=== PATIENT | female | born 1990 | race Caucasian/White ===

== ENCOUNTER 2018-06-05 12:47 | Emergency (ER) | payer MEDICARE, MEDICAID ==
[~2018-06-05] VITALS: Ht 177.8 cm; Wt 81.8 kg
[~2018-06-05 12:47] MED LIST: ALBU18HF2 INH; SERT50TA PO
[2018-06-05] MEDS ORDERED: predniSONE 20 mg tablet PO ONE (14:15)
[2018-06-05] MEDS ORDERED: epiNEPHrine 1 mg/ml inj SQ ONE (14:15)
[2018-06-05] MEDS ORDERED: famotidine 10mg tablet PO SCH (14:15)
[2018-06-05] MEDS ORDERED: diphenhydrAMINE 50 mg/ml inj IM ONE (14:15)
[2018-06-05] MEDS ORDERED: DIPH25CA83 PO (14:21)
[2018-06-05] MEDS ORDERED: FAMO-128 PO (14:21)
[2018-06-05] MEDS ORDERED: PRED10TA PO (14:21)
[2018-06-05 15:28] VITALS: BP 106/56
== END 2018-06-05 15:50 | disposition home or self-care (01) ==
LOC: ER 12:48
DX: L50.8 Other urticaria (principal); G89.29 Other chronic pain; F17.200 Nicotine dependence, unspecified, uncomplicated; J45.909 Unspecified asthma, uncomplicated; Z56.0 Unemployment, unspecified; Z98.890 Other specified postprocedural states; Z79.899 Other long term (current) drug therapy
CPT/HCPCS: 96372; 99284; J0171; J1200; J7512

== ENCOUNTER 2018-07-20 13:50 | Emergency (ER) | payer MEDICARE, MEDICAID ==
[~2018-07-20] VITALS: Ht 175.3 cm; Wt 135.0 kg
[~2018-07-20 13:50] MED LIST changes: +DIPH25CA83 PO; +FAMO-128 PO; +PRED10TA PO
[2018-07-20 15:07] LABS: BASOPHILS # (AUTO) 0.1 X10'3 (0-0.2); BASOPHILS % (AUTO) 0.7 % (0-1); EOSINOPHILS # (AUTO) 0.1 X10'3 (0-0.9); EOSINOPHILS % (AUTO) 0.4 % (0-6); HEMATOCRIT 40.7 % (35.0-45.0); HEMOGLOBIN 13.9 g/dl (12.0-16.0); LYMPHOCYTES % (AUTO) 14.6 % (21-51); MEAN CORPUSCULAR HEMOGLOBIN 29.4 PG (27.0-31.0); MEAN CORPUSCULAR HGB CONC 34.3 % (33.0-36.5); MEAN CORPUSCULAR VOLUME 85.8 FL (78-98); MEAN PLATELET VOLUME 8.1 FL (7.4-10.4); MONOCYTES # (AUTO) 0.6 X10'3 (0-0.9); MONOCYTES % (AUTO) 4.6 % (2-12); NEUTROPHILS # (AUTO) 10.9 X10'3 (1.8-7.7); NEUTROPHILS % (AUTO) 79.7 % (42-75); PLATELET COUNT 399 X10'3 (140-440); RED BLOOD COUNT 4.74 X10'6 (4.20-5.60); RED CELL DISTRIBUTION WIDTH 13.4 % (11.5-14.5); WHITE BLOOD COUNT 13.7 X10'3 (4.5-11.0)
[2018-07-20 15:18] LABS: ALANINE AMINOTRANSFERASE 24 U/L (12-78); ALBUMIN 4.3 G/DL (3.4-5.0); ALBUMIN/GLOBULIN RATIO 1.2 (1.1-1.5); ALKALINE PHOSPHATASE 67 IU/L (46-116); ANION GAP 18 (8-16); ASPARTATE AMINO TRANSFERASE 20 U/L (10-37); BILIRUBIN,TOTAL 0.7 MG/DL (0.1-1.0); BLOOD UREA NITROGEN 14 MG/DL (7-18); BUN/CREATININE RATIO 15.6 (6.6-38.0); CALCIUM 9.7 MG/DL (8.5-10.1); CHLORIDE 104 MMOL/L (99-107); GLUCOSE 85 MG/DL (70-104); POTASSIUM 3.5 MMOL/L (3.5-5.1); SODIUM 143 MMOL/L (135-145); TOTAL CARBON DIOXIDE 21.5 MMOL/L (24-32); eGFR 76 ML/MIN
[2018-07-20] MEDS ORDERED: LORazepam 1 MG tablet PO ONE (15:20)
[2018-07-20 15:28] LABS: ETHANOL < 0.010 GM/DL (0.0-0.010)
[2018-07-20 15:32] LABS: ACETAMINOPHEN < 2.0 UG/ML (10-30)
[2018-07-20 16:37] LABS: URINE HCG NEGATIVE (NEG)
[2018-07-20 16:44] LABS: CLARITY,URINE SLIGHTLY CLOUDY (Clear); COLOR,URINE YELLOW (Yellow); GLUCOSE, URINE NEGATIVE (Neg); KETONES,URINE 15 mg/dl (Neg); LEUKOCYTE ESTERASE ,URINE SMALL (Neg); NITRITES, URINE NEGATIVE (Neg); OCCULT BLOOD,URINE NEGATIVE (Neg); PH,URINE 6.5 (4.8-8.0); PROTEIN,URINE NEGATIVE (Neg)
[2018-07-20 16:49] LABS: URINE AMPHETAMINE SCREEN POSITIVE (Neg); URINE BARBITUATE SCREEN NEGATIVE (Neg); URINE BENZODIAZEPINES SCREEN NEGATIVE (Neg); URINE CANNABINOID SCREEN NEGATIVE (Neg); URINE COCAINE SCREEN NEGATIVE (Neg); URINE METHADONE SCREEN NEGATIVE (Neg); URINE OPIATE SCREEN NEGATIVE (Neg); URINE PHENCYCLIDINE SCREEN NEGATIVE (Neg)
[2018-07-20 16:56] LABS: UA COLLECTION TYPE CLN CATCH MIDSTREAM
[2018-07-20 16:58] LABS: BACTERIA,URINE 2+ /HPF (Neg); RBC,URINE 0-2 /HPF (0-2); SQUAMOUS EPITHELIAL CELL,UR MODERATE /LPF (FEW)
[2018-07-20 16:59] LABS: HYALINE CASTS 0-3 /LPF (NEGATIVE); MUCUS STRANDS FEW /LPF (Neg)
[2018-07-20] MEDS ORDERED: ibuprofen 200mg tablet PO ONE (19:00)
[2018-07-21] MEDS ORDERED: sertraline 50mg tablet PO SCH (08:00)
[2018-07-21] MEDS ORDERED: ibuprofen 200mg tablet PO ONE (08:55)
[2018-07-21] MEDS ORDERED: LORazepam 1 MG tablet PO PRN (12:25)
[2018-07-21 17:55] VITALS: BP 120/57
[2018-07-22] MEDS ORDERED: sertraline 25mg tablet PO SCH (08:00)
== END 2018-07-21 20:35 ==
LOC: ER 13:51
DX: S70.11XA Contusion of right thigh, initial encounter (principal); S40.811A Abrasion of right upper arm, initial encounter; F32.9 Major depressive disorder, single episode, unspecified; R45.851 Suicidal ideations; J45.909 Unspecified asthma, uncomplicated; G89.29 Other chronic pain; F20.9 Schizophrenia, unspecified; Z56.0 Unemployment, unspecified; Z98.890 Other specified postprocedural states; Z79.899 Other long term (current) drug therapy; X78.9XXA Intentional self-harm by unspecified sharp object, initial encounter; Y93.89 Activity, other specified; Y92.89 Other specified places as the place of occurrence of the external cause; Y99.9 Unspecified external cause status
CPT/HCPCS: 36415; 71045; 80053; 80305; 80320; 80329; 81001; 81025; 84443; 85025; 99285

== ENCOUNTER 2018-10-09 12:39 | Emergency (ER) | payer MEDICARE, MEDICAID ==
[~2018-10-09] VITALS: Ht 175.3 cm; Wt 62.2 kg
[2018-10-09 12:45] VITALS: BP 107/71
[2018-10-09] MEDS ORDERED: LIDOcaine 40mg/ml topical solution MM ONE (13:15)
[2018-10-09] MEDS ORDERED: LIDOcaine 4% (40 mg/ml) topical solution 50ml MM ONE (13:30)
[2018-10-09] MEDS ORDERED: CLIN-96 PO (14:17)
[2018-10-09] MEDS ORDERED: ACET-3068 PO (14:17)
== END 2018-10-09 14:57 | disposition home or self-care (01) ==
LOC: ER 12:40
DX: N61.1 Abscess of the breast and nipple (principal); J45.909 Unspecified asthma, uncomplicated; G89.29 Other chronic pain; F17.200 Nicotine dependence, unspecified, uncomplicated; F12.90 Cannabis use, unspecified, uncomplicated; Z56.0 Unemployment, unspecified; Z98.890 Other specified postprocedural states; Z79.899 Other long term (current) drug therapy
CPT/HCPCS: 99283; J2001

== ENCOUNTER 2018-12-21 19:06 | Emergency (ER) | payer MEDICARE, MEDICAID ==
[~2018-12-21] VITALS: Ht 177.8 cm; Wt 54.5 kg
[~2018-12-21 19:06] MED LIST changes: +CLIN-96 PO
[2018-12-21 19:33] LABS: CLARITY,URINE SLIGHTLY CLOUDY (Clear); COLOR,URINE YELLOW (Yellow); GLUCOSE, URINE NEGATIVE (Neg); KETONES,URINE NEGATIVE (Neg); LEUKOCYTE ESTERASE ,URINE LARGE (Neg); NITRITES, URINE NEGATIVE (Neg); OCCULT BLOOD,URINE NEGATIVE (Neg); PH,URINE 6.5 (4.8-8.0); PROTEIN,URINE NEGATIVE (Neg); URINE HCG NEGATIVE (NEG)
[2018-12-21 19:34] LABS: UA COLLECTION TYPE CLN CATCH MIDSTREAM
[2018-12-21 19:46] LABS: BACTERIA,URINE FEW /HPF (Neg); MUCUS STRANDS NONE SEEN /LPF (Neg); SQUAMOUS EPITHELIAL CELL,UR MANY /LPF (FEW); TRICHOMONAS,URINE FEW /HPF (NEGATIVE)
[2018-12-21 20:12] LABS: URINE AMPHETAMINE SCREEN NEGATIVE (Neg); URINE BARBITUATE SCREEN NEGATIVE (Neg); URINE BENZODIAZEPINES SCREEN NEGATIVE (Neg); URINE CANNABINOID SCREEN NEGATIVE (Neg); URINE COCAINE SCREEN NEGATIVE (Neg); URINE METHADONE SCREEN NEGATIVE (Neg); URINE OPIATE SCREEN NEGATIVE (Neg); URINE PHENCYCLIDINE SCREEN NEGATIVE (Neg)
[2018-12-21] MEDS ORDERED: NITR100C6 PO (20:30)
[2018-12-21] MEDS ORDERED: acetaminophen 325mg tablet PO ONE (20:30)
[2018-12-21 20:41] VITALS: BP 132/69
== END 2018-12-21 20:43 | disposition home or self-care (01) ==
LOC: ER 19:07
DX: N39.0 Urinary tract infection, site not specified (principal); J45.909 Unspecified asthma, uncomplicated; G89.29 Other chronic pain; F12.90 Cannabis use, unspecified, uncomplicated; Z98.890 Other specified postprocedural states; Z56.0 Unemployment, unspecified; Z79.899 Other long term (current) drug therapy
CPT/HCPCS: 80305; 81001; 81025; 99283

== ENCOUNTER 2019-01-07 09:32 | Emergency (ER) | payer MEDICARE, MEDICAID ==
[~2019-01-07] VITALS: Ht 175.3 cm; Wt 62.1 kg
[~2019-01-07 09:32] MED LIST changes: +NITR100C6 PO
[2019-01-07 09:45] VITALS: BP 98/57
[2019-01-07 10:29] LABS: BASOPHILS # (AUTO) 0.1 X10'3 (0-0.2); BASOPHILS % (AUTO) 1.5 % (0-1); EOSINOPHILS # (AUTO) 0.2 X10'3 (0-0.9); EOSINOPHILS % (AUTO) 3.1 % (0-6); HEMATOCRIT 39.2 % (35.0-45.0); HEMOGLOBIN 13.4 g/dl (12.0-16.0); LYMPHOCYTES # (AUTO) 2.3 X10'3 (1.1-4.8); LYMPHOCYTES % (AUTO) 33.5 % (21-51); MEAN CORPUSCULAR HEMOGLOBIN 30.6 PG (27.0-31.0); MEAN CORPUSCULAR HGB CONC 34.2 g/dL (33.0-36.5); MEAN CORPUSCULAR VOLUME 89.7 FL (78-98); MEAN PLATELET VOLUME 7.4 FL (7.4-10.4); MONOCYTES # (AUTO) 0.4 X10'3 (0-0.9); MONOCYTES % (AUTO) 6.4 % (2-12); NEUTROPHILS # (AUTO) 3.9 X10'3 (1.8-7.7); NEUTROPHILS % (AUTO) 55.5 % (42-75); PLATELET COUNT 401 X10'3 (140-440); RED BLOOD COUNT 4.37 X10'6 (4.20-5.60); RED CELL DISTRIBUTION WIDTH 14.2 % (11.5-14.5)
[2019-01-07 10:52] LABS: ALANINE AMINOTRANSFERASE 25 U/L (12-78); ALBUMIN 3.8 G/DL (3.4-5.0); ALKALINE PHOSPHATASE 68 IU/L (46-116); ANION GAP 5 (8-16); ASPARTATE AMINO TRANSFERASE 13 U/L (10-37); BILIRUBIN,TOTAL 0.3 MG/DL (0.1-1.0); BLOOD UREA NITROGEN 10 MG/DL (7-18); BUN/CREATININE RATIO 11.8 (6.6-38.0); CALCIUM 8.9 MG/DL (8.5-10.1); CHLORIDE 109 MMOL/L (99-107); CREATININE 0.85 MG/DL (0.40-0.90); GLUCOSE 87 MG/DL (70-104); SODIUM 142 MMOL/L (135-145); TOTAL CARBON DIOXIDE 28.5 MMOL/L (24-32); TOTAL PROTEIN 7.6 G/DL (6.4-8.2); eGFR 81 ML/MIN
[2019-01-07 11:02] LABS: BETA HCG,QUANTITATIVE < 1.0 mIU/ml
[2019-01-07 11:20] LABS: CLARITY,URINE SLIGHTLY CLOUDY (Clear); COLOR,URINE YELLOW (Yellow); GLUCOSE, URINE NEGATIVE (Neg); KETONES,URINE NEGATIVE (Neg); LEUKOCYTE ESTERASE ,URINE TRACE (Neg); NITRITES, URINE NEGATIVE (Neg); OCCULT BLOOD,URINE LARGE (Neg); PROTEIN,URINE NEGATIVE (Neg); UA COLLECTION TYPE CLN CATCH MIDSTREAM; UROBILINOGEN,URINE 0.2 E.U/dL (0.2-1.0)
[2019-01-07 11:24] LABS: BACTERIA,URINE FEW /HPF (Neg); RBC,URINE 20-50 /HPF (0-2); SQUAMOUS EPITHELIAL CELL,UR FEW /LPF (FEW); TRICHOMONAS,URINE FEW /HPF (NEGATIVE); WBC CLUMPS,URINE FEW /HPF (NEGATIVE)
[2019-01-07] MEDS ORDERED: CefTRIAXone 1000mg IM Kit (w/lidocaine diluent) IM ONE (11:30)
[2019-01-07] MEDS ORDERED: azithromycin 250mg tablet PO ONE (11:30)
== END 2019-01-07 11:58 | disposition home or self-care (01) ==
LOC: ER 09:32
DX: N93.8 Other specified abnormal uterine and vaginal bleeding (principal); N39.0 Urinary tract infection, site not specified; J45.909 Unspecified asthma, uncomplicated; G89.29 Other chronic pain; F12.90 Cannabis use, unspecified, uncomplicated; Z56.0 Unemployment, unspecified; Z98.890 Other specified postprocedural states; Z79.899 Other long term (current) drug therapy
CPT/HCPCS: 36415; 80053; 81001; 84702; 85025; 86900; 86901; 87088; 96372; 99284; J0696

== ENCOUNTER 2019-02-18 20:51 | Emergency (ER) | payer MEDICARE, MEDICAID ==
[~2019-02-18] VITALS: Ht 170.2 cm; Wt 61.0 kg
--- NOTE | 2019-02-18 22:00 | NUR ---
pt reports increasing depression and "hearing voices." pt came in with friend from AA, who is a supportive person. per pt she has been clean and sober since january 05, but is afraid of relapsing due to mental health struggles.
[2019-02-18] MEDS ORDERED: SERT50TA10 PO (22:18)
[2019-02-18 22:49] LABS: URINE HCG NEGATIVE (NEG)
[2019-02-18 22:51] LABS: BASOPHILS # (AUTO) 0.1 X10'3 (0-0.2); BASOPHILS % (AUTO) 0.7 % (0-1); EOSINOPHILS # (AUTO) 0.2 X10'3 (0-0.9); EOSINOPHILS % (AUTO) 2.4 % (0-6); HEMATOCRIT 38.4 % (35.0-45.0); HEMOGLOBIN 13.1 g/dl (12.0-16.0); LYMPHOCYTES # (AUTO) 3.1 X10'3 (1.1-4.8); LYMPHOCYTES % (AUTO) 31.9 % (21-51); MEAN CORPUSCULAR HEMOGLOBIN 30.4 PG (27.0-31.0); MEAN CORPUSCULAR HGB CONC 34.1 g/dL (33.0-36.5); MEAN CORPUSCULAR VOLUME 89.3 FL (78-98); MEAN PLATELET VOLUME 7.7 FL (7.4-10.4); MONOCYTES # (AUTO) 0.6 X10'3 (0-0.9); MONOCYTES % (AUTO) 5.8 % (2-12); NEUTROPHILS # (AUTO) 5.8 X10'3 (1.8-7.7); NEUTROPHILS % (AUTO) 59.2 % (42-75); PLATELET COUNT 331 X10'3 (140-440); RED BLOOD COUNT 4.29 X10'6 (4.20-5.60); RED CELL DISTRIBUTION WIDTH 13.1 % (11.5-14.5); WHITE BLOOD COUNT 9.8 X10'3 (4.5-11.0)
[2019-02-18 23:03] LABS: ALANINE AMINOTRANSFERASE 21 U/L (12-78); ALBUMIN 3.8 G/DL (3.4-5.0); ALBUMIN/GLOBULIN RATIO 1.1 (1.1-1.5); ALKALINE PHOSPHATASE 55 IU/L (46-116); ANION GAP 7 (8-16); ASPARTATE AMINO TRANSFERASE 9 U/L (10-37); BILIRUBIN,TOTAL 0.3 MG/DL (0.1-1.0); BLOOD UREA NITROGEN 16 MG/DL (7-18); BUN/CREATININE RATIO 24.6 (6.6-38.0); CALCIUM 8.6 MG/DL (8.5-10.1); CHLORIDE 106 MMOL/L (99-107); CREATININE 0.65 MG/DL (0.40-0.90); GLUCOSE 94 MG/DL (70-104); POTASSIUM 3.8 MMOL/L (3.5-5.1); SODIUM 139 MMOL/L (135-145); TOTAL CARBON DIOXIDE 26.5 MMOL/L (24-32); TOTAL PROTEIN 7.3 G/DL (6.4-8.2); eGFR > 90 ML/MIN
[2019-02-18 23:04] LABS: ETHANOL < 0.010 GM/DL (0.0-0.010)
[2019-02-18 23:08] LABS: URINE AMPHETAMINE SCREEN NEGATIVE (Neg); URINE BARBITUATE SCREEN NEGATIVE (Neg); URINE BENZODIAZEPINES SCREEN NEGATIVE (Neg); URINE CANNABINOID SCREEN NEGATIVE (Neg); URINE COCAINE SCREEN NEGATIVE (Neg); URINE METHADONE SCREEN NEGATIVE (Neg); URINE OPIATE SCREEN NEGATIVE (Neg); URINE PHENCYCLIDINE SCREEN NEGATIVE (Neg)
--- NOTE | 2019-02-18 23:23 | NUR ---
Packet faxed to [facility]. Unable to confirm receipt of packet as out of business hours.
--- NOTE | 2019-02-19 07:00 | NUR ---
Pt is lying in bed, appears to be sleeping.
[2019-02-19] MEDS ORDERED: sertraline 50mg tablet PO SCH (08:00)
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
--- NOTE | 2019-02-19 11:00 | NUR ---
Pt asking for crayons and markers, provided.
--- NOTE | 2019-02-19 11:44 | NUR ---
Pt evaluated by [facility].
--- NOTE | 2019-02-19 12:15 | NUR ---
Pt is being discharged today after lunch.
--- NOTE | 2019-02-19 13:35 | NUR ---
Pt's boyfriend is here to pick her up. Discussed follow up care, short term goals, and suicide hotline. Pt expressed understanding.
--- NOTE | 2019-02-19 13:47 | NUR ---
Pt discharged accompanied by boyfriend. Ambulated off the unit accompanied by PCT. All belongings returned.
[2019-02-19 13:48] VITALS: BP 120/62
== END 2019-02-19 13:48 | disposition home or self-care (01) ==
LOC: ER 20:54
DX: R45.851 Suicidal ideations (principal); J45.909 Unspecified asthma, uncomplicated; G89.29 Other chronic pain; F41.9 Anxiety disorder, unspecified; F20.9 Schizophrenia, unspecified; F12.90 Cannabis use, unspecified, uncomplicated; F10.99 Alcohol use, unspecified with unspecified alcohol-induced disorder; Z86.69 Personal history of other diseases of the nervous system and sense organs; Z98.890 Other specified postprocedural states; Z79.899 Other long term (current) drug therapy; Z56.0 Unemployment, unspecified; Y90.0 Blood alcohol level of less than 20 mg/100 ml
CPT/HCPCS: 36415; 80053; 80305; 80320; 81025; 85025; 99284

== ENCOUNTER 2019-03-16 13:42 | Emergency (ER) | payer MEDICARE, MEDICAID ==
[~2019-03-16] VITALS: Ht 172.7 cm; Wt 69.2 kg
[~2019-03-16 13:42] MED LIST changes: -CLIN-96 PO; -DIPH25CA83 PO; -FAMO-128 PO; -NITR100C6 PO; -PRED10TA PO; -SERT50TA PO; +SERT50TA10 PO
--- NOTE | 2019-03-16 14:15 | NUR ---
Pt has some difficulty speaking since she received invega shot. Pt states she woke up with the symptoms. Pt cognitive ability intact, states she has intermittant weakness/sensation changes alternating between right and left sides. Pt has recent instability with meth and alcohol use. Provider is aware of patient.
--- NOTE | 2019-03-16 15:05 | NUR ---
Stroke alert called on patient and Pt moved from [facility] to ER room 4. SBAR to [facility]
[2019-03-16 15:32] LABS: BASOPHILS # (AUTO) 0.1 X10'3 (0-0.2); BASOPHILS % (AUTO) 0.8 % (0-1); EOSINOPHILS # (AUTO) 0.3 X10'3 (0-0.9); EOSINOPHILS % (AUTO) 3.2 % (0-6); HEMATOCRIT 40.3 % (35.0-45.0); HEMOGLOBIN 13.7 g/dl (12.0-16.0); LYMPHOCYTES # (AUTO) 3.1 X10'3 (1.1-4.8); LYMPHOCYTES % (AUTO) 36.5 % (21-51); MEAN CORPUSCULAR HEMOGLOBIN 30.3 PG (27.0-31.0); MEAN CORPUSCULAR VOLUME 89.3 FL (78-98); MEAN PLATELET VOLUME 7.4 FL (7.4-10.4); MONOCYTES # (AUTO) 0.5 X10'3 (0-0.9); MONOCYTES % (AUTO) 5.3 % (2-12); NEUTROPHILS # (AUTO) 4.6 X10'3 (1.8-7.7); NEUTROPHILS % (AUTO) 54.2 % (42-75); PLATELET COUNT 304 X10'3 (140-440); RED BLOOD COUNT 4.51 X10'6 (4.20-5.60); RED CELL DISTRIBUTION WIDTH 12.5 % (11.5-14.5); WHITE BLOOD COUNT 8.5 X10'3 (4.5-11.0)
--- NOTE | 2019-03-16 15:34 | NUR ---
TELE NEURO INITIATED
[2019-03-16 15:42] LABS: ALANINE AMINOTRANSFERASE 24 U/L (12-78); ALBUMIN 3.8 G/DL (3.4-5.0); ALKALINE PHOSPHATASE 58 IU/L (46-116); ANION GAP 6 (8-16); ASPARTATE AMINO TRANSFERASE 13 U/L (10-37); BILIRUBIN,TOTAL 0.2 MG/DL (0.1-1.0); BLOOD UREA NITROGEN 13 MG/DL (7-18); BUN/CREATININE RATIO 17.6 (6.6-38.0); CALCIUM 8.7 MG/DL (8.5-10.1); CHLORIDE 107 MMOL/L (99-107); CREATININE 0.74 MG/DL (0.40-0.90); GLUCOSE 94 MG/DL (70-104); POTASSIUM 4.4 MMOL/L (3.5-5.1); SODIUM 141 MMOL/L (135-145); TOTAL CARBON DIOXIDE 28.3 MMOL/L (24-32); TOTAL PROTEIN 7.6 G/DL (6.4-8.2); eGFR > 90 ML/MIN
[2019-03-16 15:43] LABS: PARTIAL THROMBOPLASTIN TIME 29 SECONDS (22-32)
[2019-03-16 15:49] LABS: URINE HCG NEGATIVE (NEG)
--- NOTE | 2019-03-16 15:49 | NUR ---
pt has hx of anxiety uses a vape mode cbd. also has a vape for nicotine
[2019-03-16 15:53] LABS: CLARITY,URINE CLOUDY (Clear); COLOR,URINE YELLOW (Yellow); GLUCOSE, URINE NEGATIVE (Neg); KETONES,URINE NEGATIVE (Neg); LEUKOCYTE ESTERASE ,URINE SMALL (Neg); NITRITES, URINE NEGATIVE (Neg); OCCULT BLOOD,URINE NEGATIVE (Neg); PROTEIN,URINE NEGATIVE (Neg); UROBILINOGEN,URINE 0.2 E.U/dL (0.2-1.0)
[2019-03-16 15:54] LABS: UA COLLECTION TYPE CLN CATCH MIDSTREAM; URINE AMPHETAMINE SCREEN NEGATIVE (Neg); URINE BARBITUATE SCREEN NEGATIVE (Neg); URINE BENZODIAZEPINES SCREEN NEGATIVE (Neg); URINE CANNABINOID SCREEN NEGATIVE (Neg); URINE COCAINE SCREEN NEGATIVE (Neg); URINE METHADONE SCREEN NEGATIVE (Neg); URINE OPIATE SCREEN NEGATIVE (Neg); URINE PHENCYCLIDINE SCREEN NEGATIVE (Neg)
[2019-03-16 16:01] LABS: BACTERIA,URINE FEW /HPF (Neg); RBC,URINE 0-2 /HPF (0-2); SQUAMOUS EPITHELIAL CELL,UR MODERATE /LPF (FEW)
[2019-03-16 16:30] VITALS: BP 125/60
[2019-03-16] MEDS ORDERED: NITR100C6 PO (17:36)
== END 2019-03-16 17:31 | disposition home or self-care (01) ==
LOC: ER 13:44
DX: R47.81 Slurred speech (principal); R20.2 Paresthesia of skin; R30.0 Dysuria; F19.10 Other psychoactive substance abuse, uncomplicated; J45.909 Unspecified asthma, uncomplicated; G89.29 Other chronic pain; F41.9 Anxiety disorder, unspecified; F32.9 Major depressive disorder, single episode, unspecified; F20.9 Schizophrenia, unspecified; F15.90 Other stimulant use, unspecified, uncomplicated; Z98.890 Other specified postprocedural states; Z56.0 Unemployment, unspecified; Z79.899 Other long term (current) drug therapy
CPT/HCPCS: 36415; 70450; 71045; 80053; 80305; 81001; 81025; 85025; 85610; 85730; 86885; 86900; 86901; 87088; 93005; 99284

== ENCOUNTER 2019-09-09 11:57 | Emergency (ER) | payer MEDICAID, MEDICARE ==
[~2019-09-09] VITALS: Ht 175.3 cm; Wt 73.2 kg
[~2019-09-09 11:57] MED LIST changes: +NITR100C6 PO
[2019-09-09 13:07] VITALS: BP 114/69
== END 2019-09-09 13:09 | disposition home or self-care (01) ==
LOC: ER 11:58
DX: F15.10 Other stimulant abuse, uncomplicated (principal); J45.909 Unspecified asthma, uncomplicated; G89.29 Other chronic pain; F41.9 Anxiety disorder, unspecified; F32.9 Major depressive disorder, single episode, unspecified; F20.9 Schizophrenia, unspecified; Z56.0 Unemployment, unspecified; Z98.890 Other specified postprocedural states; Z86.69 Personal history of other diseases of the nervous system and sense organs; Z79.899 Other long term (current) drug therapy
CPT/HCPCS: 99281

== ENCOUNTER 2019-09-16 13:54 | Emergency (ER) | payer MEDICARE, MEDICAID ==
[~2019-09-16] VITALS: Ht 175.3 cm; Wt 75.3 kg
[2019-09-16] MEDS ORDERED: diphenhydrAMINE 25mg capsule PO ONE (16:35)
--- NOTE | 2019-09-16 16:40 | NUR ---
Pt is pending urine specimen. Pt is calm and cooperative.
[2019-09-16] MEDS ORDERED: CARI1.5C PO (16:51)
[2019-09-16 17:35] LABS: BASOPHILS # (AUTO) 0.1 X10'3 (0-0.2); BASOPHILS % (AUTO) 0.7 % (0-1); EOSINOPHILS # (AUTO) 0.3 X10'3 (0-0.9); EOSINOPHILS % (AUTO) 2.8 % (0-6); HEMATOCRIT 38.1 % (35.0-45.0); HEMOGLOBIN 13.4 g/dl (12.0-16.0); LYMPHOCYTES # (AUTO) 3.4 X10'3 (1.1-4.8); LYMPHOCYTES % (AUTO) 36.7 % (21-51); MEAN CORPUSCULAR HEMOGLOBIN 30.4 PG (27.0-31.0); MEAN CORPUSCULAR HGB CONC 35.2 g/dL (33.0-36.5); MEAN CORPUSCULAR VOLUME 86.4 FL (78-98); MEAN PLATELET VOLUME 7.1 FL (7.4-10.4); MONOCYTES # (AUTO) 0.7 X10'3 (0-0.9); MONOCYTES % (AUTO) 7.2 % (2-12); NEUTROPHILS # (AUTO) 4.9 X10'3 (1.8-7.7); NEUTROPHILS % (AUTO) 52.6 % (42-75); PLATELET COUNT 328 X10'3 (140-440); RED BLOOD COUNT 4.41 X10'6 (4.20-5.60); RED CELL DISTRIBUTION WIDTH 12.6 % (11.5-14.5); WHITE BLOOD COUNT 9.3 X10'3 (4.5-11.0)
--- NOTE | 2019-09-16 17:42 | NUR ---
Pt is resting on the gurney. Pt is awaiting urine specimen prior to any futher orders.
[2019-09-16 17:44] LABS: ALANINE AMINOTRANSFERASE 18 U/L (12-78); ALBUMIN 3.6 G/DL (3.4-5.0); ALKALINE PHOSPHATASE 63 IU/L (46-116); ANION GAP 3 (8-16); ASPARTATE AMINO TRANSFERASE 12 U/L (10-37); BILIRUBIN,TOTAL 0.2 MG/DL (0.1-1.0); BLOOD UREA NITROGEN 12 MG/DL (7-18); BUN/CREATININE RATIO 16.9 (6.6-38.0); CALCIUM 9.1 MG/DL (8.5-10.1); CHLORIDE 108 MMOL/L (99-107); CREATININE 0.71 MG/DL (0.40-0.90); GLUCOSE 89 MG/DL (70-104); POTASSIUM 3.8 MMOL/L (3.5-5.1); SODIUM 143 MMOL/L (135-145); TOTAL CARBON DIOXIDE 31.8 MMOL/L (24-32); TOTAL PROTEIN 7.2 G/DL (6.4-8.2); eGFR > 90 ML/MIN
[2019-09-16 17:52] LABS: ETHANOL < 0.010 GM/DL (0.0-0.010)
--- NOTE | 2019-09-16 18:43 | NUR ---
Pt ambulatory to the restroom to provide urine specimen. Pt is calm and cooperative.
[2019-09-16 19:07] LABS: CLARITY,URINE CLEAR (Clear); COLOR,URINE YELLOW (Yellow); GLUCOSE, URINE NEGATIVE (Neg); KETONES,URINE NEGATIVE (Neg); LEUKOCYTE ESTERASE ,URINE NEGATIVE (Neg); NITRITES, URINE NEGATIVE (Neg); OCCULT BLOOD,URINE NEGATIVE (Neg); PROTEIN,URINE NEGATIVE (Neg); UROBILINOGEN,URINE 0.2 E.U/dL (0.2-1.0)
[2019-09-16 19:15] LABS: UA COLLECTION TYPE CLN CATCH MIDSTREAM
[2019-09-16 19:20] LABS: URINE HCG NEGATIVE (NEG)
[2019-09-16 19:23] LABS: URINE AMPHETAMINE SCREEN NEGATIVE (Neg); URINE BARBITUATE SCREEN NEGATIVE (Neg); URINE BENZODIAZEPINES SCREEN NEGATIVE (Neg); URINE CANNABINOID SCREEN NEGATIVE (Neg); URINE COCAINE SCREEN NEGATIVE (Neg); URINE METHADONE SCREEN NEGATIVE (Neg); URINE OPIATE SCREEN NEGATIVE (Neg); URINE PHENCYCLIDINE SCREEN NEGATIVE (Neg)
--- NOTE | 2019-09-16 19:40 | NUR ---
Pt resting with even and unlabored respirations. Pt has no change in condition.
--- NOTE | 2019-09-16 20:37 | NUR ---
No change in condition, continuing to monitor, sitter at bedside.
--- NOTE | 2019-09-16 21:42 | NUR ---
Pt is resting, no change in condition. Sitter at the bedside.
[2019-09-16] MEDS ORDERED: ALBU18HF2 INH (22:27)
--- NOTE | 2019-09-16 22:36 | NUR ---
Med rec has been addressed and faxed to pharmacy. Pt's chart was faxed to the [facility] office.
[2019-09-16] MEDS ORDERED: albuterol 2.5 MG/3 ML nebule NEB PRN (23:05)
--- NOTE | 2019-09-16 23:40 | NUR ---
Pt is resting with even and unlabored respirations. Sitter at the bedside.
--- NOTE | 2019-09-17 00:31 | NUR ---
patient in bed eyes closed rr even un labored sitter in reach of patient no observable s/s of acute stress at this time
--- NOTE | 2019-09-17 01:48 | NUR ---
packet faxed to [facility]
--- NOTE | 2019-09-17 02:30 | NUR ---
PATIENT UP WITH SITTER TO THE RESTROOM AND BACK IN BED COVERS ON EYES CLOSED RR EVEN UN LABORED NO OBSERVABLE S/S OF ACUTE STRESS AT THIS TIME
--- NOTE | 2019-09-17 04:32 | NUR ---
patient in bed lying on right side covers on eyes closed rr even un labored no observable s/s of acute stress at this time will continue to monitor
[2019-09-17 06:00] VITALS: BP 111/67
--- NOTE | 2019-09-17 06:18 | NUR ---
PATIENT IN BED EYES CLOSED RR EVEN UN LABORED NO OBSERVABLE S/S OF ACUTE STRESS AT THIS TIME
--- NOTE | 2019-09-17 06:37 | NUR ---
SBAR TO [facility] RN NO QUESTIONS OR CONCERNS AFTER ASSUMING CARE
--- NOTE | 2019-09-17 10:10 | NUR ---
pt is standing in her doorway, when asked if she needs something went back to her bedm appears calm
--- NOTE | 2019-09-17 11:12 | NUR ---
PT CONTINUES TO STAND AT DOORWAY, CALM, SITTER PRESENT
== END 2019-09-17 13:35 | disposition home or self-care (01) ==
LOC: ER 13:55
DX: R45.851 Suicidal ideations (principal); F25.9 Schizoaffective disorder, unspecified; J45.909 Unspecified asthma, uncomplicated; G89.29 Other chronic pain; F41.9 Anxiety disorder, unspecified; F15.90 Other stimulant use, unspecified, uncomplicated; F17.200 Nicotine dependence, unspecified, uncomplicated; Z86.69 Personal history of other diseases of the nervous system and sense organs; Z56.0 Unemployment, unspecified; Z79.899 Other long term (current) drug therapy
CPT/HCPCS: 36415; 80053; 80305; 80320; 81003; 81025; 84443; 85025; 99283; Q0163; 99285

== ENCOUNTER 2019-12-09 22:36 | Emergency (ER) | payer MEDICARE, MEDICAID ==
[~2019-12-09] VITALS: Ht 175.3 cm; Wt 86.4 kg
[~2019-12-09 22:36] MED LIST changes: -NITR100C6 PO; -SERT50TA10 PO
[2019-12-09 23:20] LABS: URINE HCG NEGATIVE (NEG)
[2019-12-09 23:46] LABS: CLARITY,URINE SLIGHTLY CLOUDY (Clear); COLOR,URINE YELLOW (Yellow); GLUCOSE, URINE NEGATIVE (Neg); KETONES,URINE NEGATIVE (Neg); LEUKOCYTE ESTERASE ,URINE MODERATE (Neg); NITRITES, URINE NEGATIVE (Neg); OCCULT BLOOD,URINE LARGE (Neg); PH,URINE 5.5 (4.8-8.0); PROTEIN,URINE NEGATIVE (Neg); UROBILINOGEN,URINE 0.2 E.U/dL (0.2-1.0)
[2019-12-09 23:47] LABS: UA COLLECTION TYPE CLN CATCH MIDSTREAM
[2019-12-09] MEDS ORDERED: phenazopyridine 100mg tablet PO ONE (23:50)
[2019-12-09] MEDS ORDERED: cephalexin 250mg capsule PO ONE (23:50)
[2019-12-09] MEDS ORDERED: CEPH250T PO (23:52)
[2019-12-09] MEDS ORDERED: PHEN-824 PO (23:52)
[2019-12-09 23:54] LABS: WBC,URINE 50-100 /HPF (0-4)
[2019-12-09 23:55] LABS: BACTERIA,URINE FEW /HPF (Neg); MUCUS STRANDS FEW /LPF (Neg); SQUAMOUS EPITHELIAL CELL,UR FEW /LPF (FEW)
[2019-12-10 00:06] VITALS: BP 105/64
== END 2019-12-10 00:11 | disposition home or self-care (01) ==
LOC: ER 22:37
DX: N39.0 Urinary tract infection, site not specified (principal); R30.0 Dysuria; J45.909 Unspecified asthma, uncomplicated; G89.29 Other chronic pain; F41.9 Anxiety disorder, unspecified; F31.9 Bipolar disorder, unspecified; F20.9 Schizophrenia, unspecified; F15.90 Other stimulant use, unspecified, uncomplicated; Z98.890 Other specified postprocedural states; Z86.69 Personal history of other diseases of the nervous system and sense organs; Z56.0 Unemployment, unspecified; Z79.2 Long term (current) use of antibiotics; Z79.899 Other long term (current) drug therapy
CPT/HCPCS: 81001; 81025; 87088; 99283

== ENCOUNTER 2020-07-08 10:44 | Emergency (ER) | payer MEDICARE, MEDICAID ==
[~2020-07-08] VITALS: Ht 172.7 cm; Wt 81.1 kg
[~2020-07-08 10:44] MED LIST changes: +PHEN-824 PO
[2020-07-08 10:52] VITALS: BP 115/80
== END 2020-07-08 13:01 | disposition home or self-care (01) ==
LOC: ER 10:44
DX: S93.601A Unspecified sprain of right foot, initial encounter (principal); J45.909 Unspecified asthma, uncomplicated; G89.29 Other chronic pain; Z56.0 Unemployment, unspecified; Z79.899 Other long term (current) drug therapy; X58.XXXA Exposure to other specified factors, initial encounter; Y93.89 Activity, other specified; Y92.89 Other specified places as the place of occurrence of the external cause; Y99.8 Other external cause status
CPT/HCPCS: 73630; 99283

== ENCOUNTER 2020-11-15 11:25 | Emergency (ER) | payer MEDICARE, MEDICAID ==
[~2020-11-15] VITALS: Ht 175.3 cm; Wt 89.0 kg
[2020-11-15 11:35] VITALS: BP 110/65
[2020-11-15] MEDS ORDERED: CYCL-394 PO (12:05)
[2020-11-15] MEDS ORDERED: ketorolac trometh. 30mg/ml inj. IM ONE (12:10)
== END 2020-11-15 12:17 | disposition home or self-care (01) ==
LOC: ER 11:26
DX: S39.012A Strain of muscle, fascia and tendon of lower back, initial encounter (principal); J45.909 Unspecified asthma, uncomplicated; F41.9 Anxiety disorder, unspecified; F31.9 Bipolar disorder, unspecified; F20.9 Schizophrenia, unspecified; F15.90 Other stimulant use, unspecified, uncomplicated; Z86.69 Personal history of other diseases of the nervous system and sense organs; Z87.440 Personal history of urinary (tract) infections; Z98.890 Other specified postprocedural states; Z56.0 Unemployment, unspecified; Z79.899 Other long term (current) drug therapy; X58.XXXA Exposure to other specified factors, initial encounter; Y93.89 Activity, other specified; Y92.89 Other specified places as the place of occurrence of the external cause; Y99.8 Other external cause status
CPT/HCPCS: 96372; 99283; J1885

== ENCOUNTER 2021-05-22 17:06 | Emergency (ER) | payer BC, MEDICAID ==
[~2021-05-22] VITALS: Ht 167.6 cm; Wt 100.0 kg
[2021-05-22] MEDS ORDERED: normal saline 1000ml 1,000 ML IV ONE (17:35)
[2021-05-22] MEDS ORDERED: levetiracetam inj 1,000 MG in normal saline 100ml IV soln 90 ML IV ONE (17:35)
[2021-05-22 18:13] LABS: BASOPHILS % (AUTO) 0.5 % (0-1); EOSINOPHILS # (AUTO) 0.1 X10'3 (0-0.9); EOSINOPHILS % (AUTO) 0.5 % (0-6); HEMATOCRIT 38.3 % (35.0-45.0); HEMOGLOBIN 13.3 g/dl (12.0-16.0); LYMPHOCYTES # (AUTO) 1.2 X10'3 (1.1-4.8); LYMPHOCYTES % (AUTO) 12.4 % (21-51); MEAN CORPUSCULAR HEMOGLOBIN 28.8 PG (27.0-31.0); MEAN CORPUSCULAR HGB CONC 34.7 g/dL (33.0-36.5); MEAN PLATELET VOLUME 7.4 FL (7.4-10.4); MONOCYTES # (AUTO) 0.5 X10'3 (0-0.9); MONOCYTES % (AUTO) 5.3 % (2-12); NEUTROPHILS # (AUTO) 7.9 X10'3 (1.8-7.7); NEUTROPHILS % (AUTO) 81.3 % (42-75); PLATELET COUNT 445 X10'3 (140-440); RED BLOOD COUNT 4.61 X10'6 (4.20-5.60); RED CELL DISTRIBUTION WIDTH 13.1 % (11.5-14.5); WHITE BLOOD COUNT 9.7 X10'3 (4.5-11.0)
[2021-05-22 18:17] LABS: ALANINE AMINOTRANSFERASE 23 U/L (12-78); ALBUMIN 3.7 G/DL (3.4-5.0); ALBUMIN/GLOBULIN RATIO 0.9 (1.1-1.5); ALKALINE PHOSPHATASE 68 IU/L (46-116); ANION GAP 11 (8-16); ASPARTATE AMINO TRANSFERASE 20 U/L (10-37); BILIRUBIN,TOTAL 0.5 MG/DL (0.1-1.0); BLOOD UREA NITROGEN 11 MG/DL (7-18); CALCIUM 8.5 MG/DL (8.5-10.1); CHLORIDE 108 MMOL/L (99-107); GLUCOSE 97 MG/DL (70-104); SODIUM 143 MMOL/L (135-145); TOTAL CARBON DIOXIDE 23.8 MMOL/L (24-32); TOTAL PROTEIN 7.9 G/DL (6.4-8.2); eGFR 59 ML/MIN
[2021-05-22 18:26] LABS: ETHANOL < 0.010 GM/DL (0.0-0.010)
[2021-05-22 19:52] VITALS: BP 100/68
[2021-05-23 00:43] LABS: URINE HCG NEGATIVE (NEG)
[2021-05-23 00:56] LABS: COLOR,URINE YELLOW (Yellow); UA COLLECTION TYPE NON-SPECIFIED; URINE AMPHETAMINE SCREEN POSITIVE (Neg); URINE BARBITUATE SCREEN NEGATIVE (Neg); URINE BENZODIAZEPINES SCREEN NEGATIVE (Neg); URINE CANNABINOID SCREEN NEGATIVE (Neg); URINE COCAINE SCREEN NEGATIVE (Neg); URINE METHADONE SCREEN NEGATIVE (Neg); URINE OPIATE SCREEN NEGATIVE (Neg); URINE PHENCYCLIDINE SCREEN NEGATIVE (Neg)
[2021-05-23 00:57] LABS: CLARITY,URINE SLIGHTLY CLOUDY (Clear); GLUCOSE, URINE NEGATIVE (Neg); KETONES,URINE 15 mg/dl (Neg); LEUKOCYTE ESTERASE ,URINE NEGATIVE (Neg); NITRITES, URINE NEGATIVE (Neg); OCCULT BLOOD,URINE NEGATIVE (Neg); PROTEIN,URINE NEGATIVE (Neg); UROBILINOGEN,URINE 0.2 E.U/dL (0.2-1.0)
[2021-05-23 00:59] LABS: MUCUS STRANDS MODERATE /LPF (Neg); SQUAMOUS EPITHELIAL CELL,UR MANY /LPF (FEW)
[2021-05-23 01:00] LABS: BACTERIA,URINE FEW /HPF (Neg); RBC,URINE 0-2 /HPF (0-2)
== END 2021-05-23 01:51 | disposition home or self-care (01) ==
LOC: ER 17:06
DX: F15.10 Other stimulant abuse, uncomplicated (principal); R41.0 Disorientation, unspecified; R56.9 Unspecified convulsions; J45.909 Unspecified asthma, uncomplicated; G89.29 Other chronic pain; F41.9 Anxiety disorder, unspecified; F31.9 Bipolar disorder, unspecified; F20.9 Schizophrenia, unspecified; Z87.440 Personal history of urinary (tract) infections; Z86.69 Personal history of other diseases of the nervous system and sense organs; Z98.890 Other specified postprocedural states; Z56.0 Unemployment, unspecified; Z79.899 Other long term (current) drug therapy
CPT/HCPCS: 36415; 80053; 80305; 80320; 81001; 81025; 84145; 84443; 85025; 96365; 99284; J1953; J7030

== ENCOUNTER 2021-10-08 14:47 | Emergency (ER) | payer BC, MEDICAID ==
[~2021-10-08] VITALS: Ht 175.3 cm; Wt 90.9 kg
[2021-10-08 14:49] VITALS: BP 115/54
[2021-10-08] MEDS ORDERED: CLON-528 PO (15:22)
[2021-10-08] MEDS ORDERED: clonazePAM 0.5mg tablet PO SCH (15:30)
== END 2021-10-08 16:00 | disposition home or self-care (01) ==
LOC: ER 14:48
DX: R68.84 Jaw pain (principal); G24.01 Drug induced subacute dyskinesia; F15.10 Other stimulant abuse, uncomplicated; J45.909 Unspecified asthma, uncomplicated; G89.29 Other chronic pain; F41.9 Anxiety disorder, unspecified; F31.9 Bipolar disorder, unspecified; F20.9 Schizophrenia, unspecified; Z86.69 Personal history of other diseases of the nervous system and sense organs; Z87.440 Personal history of urinary (tract) infections; Z98.890 Other specified postprocedural states; Z56.0 Unemployment, unspecified; Z79.899 Other long term (current) drug therapy
CPT/HCPCS: 99283

== ENCOUNTER 2021-10-21 11:49 | Emergency (ER) | payer BC, MEDICAID ==
[~2021-10-21] VITALS: Ht 175.3 cm; Wt 90.9 kg
[~2021-10-21 11:49] MED LIST changes: +CLON-528 PO
[2021-10-21 12:28] LABS: CLARITY,URINE CLEAR (Clear); COLOR,URINE YELLOW (Yellow); GLUCOSE, URINE NEGATIVE (Neg); KETONES,URINE NEGATIVE (Neg); LEUKOCYTE ESTERASE ,URINE NEGATIVE (Neg); NITRITES, URINE NEGATIVE (Neg); OCCULT BLOOD,URINE MODERATE (Neg); PROTEIN,URINE NEGATIVE (Neg); UROBILINOGEN,URINE 0.2 E.U/dL (0.2-1.0)
[2021-10-21 12:29] LABS: BASOPHILS # (AUTO) 0.1 X10'3 (0-0.2); BASOPHILS % (AUTO) 1.3 % (0-1); EOSINOPHILS # (AUTO) 0.3 X10'3 (0-0.9); EOSINOPHILS % (AUTO) 4.8 % (0-6); HEMOGLOBIN 13.9 g/dl (12.0-16.0); LYMPHOCYTES # (AUTO) 2.6 X10'3 (1.1-4.8); LYMPHOCYTES % (AUTO) 36.5 % (21-51); MEAN CORPUSCULAR HEMOGLOBIN 28.3 PG (27.0-31.0); MEAN CORPUSCULAR HGB CONC 33.8 g/dL (33.0-36.5); MEAN CORPUSCULAR VOLUME 83.7 FL (78-98); MEAN PLATELET VOLUME 7.4 FL (7.4-10.4); MONOCYTES # (AUTO) 0.4 X10'3 (0-0.9); MONOCYTES % (AUTO) 6.2 % (2-12); NEUTROPHILS # (AUTO) 3.7 X10'3 (1.8-7.7); NEUTROPHILS % (AUTO) 51.2 % (42-75); PLATELET COUNT 408 X10'3 (140-440); RED CELL DISTRIBUTION WIDTH 13.8 % (11.5-14.5); WHITE BLOOD COUNT 7.2 X10'3 (4.5-11.0)
[2021-10-21 12:30] LABS: URINE HCG NEGATIVE (NEG)
[2021-10-21 12:37] LABS: ALANINE AMINOTRANSFERASE 29 U/L (12-78); ALBUMIN 3.6 G/DL (3.4-5.0); ALBUMIN/GLOBULIN RATIO 0.9 (1.1-1.5); ALKALINE PHOSPHATASE 76 IU/L (46-116); ANION GAP 11 (8-16); ASPARTATE AMINO TRANSFERASE 14 U/L (10-37); BILIRUBIN,TOTAL 0.3 MG/DL (0.1-1.0); BLOOD UREA NITROGEN 7 MG/DL (7-18); CALCIUM 9.4 MG/DL (8.5-10.1); CHLORIDE 106 MMOL/L (99-107); ETHANOL < 0.010 GM/DL (0.0-0.010); GLUCOSE 103 MG/DL (70-104); POTASSIUM 4.2 MMOL/L (3.5-5.1); SODIUM 143 MMOL/L (135-145); TOTAL CARBON DIOXIDE 26.1 MMOL/L (24-32); TOTAL PROTEIN 7.8 G/DL (6.4-8.2); eGFR > 90 ML/MIN
[2021-10-21 12:37] LABS: UA COLLECTION TYPE VOIDED
[2021-10-21 12:38] LABS: BACTERIA,URINE FEW /HPF (Neg); MUCUS STRANDS FEW /LPF (Neg); RBC,URINE 0-2 /HPF (0-2); SQUAMOUS EPITHELIAL CELL,UR MANY /LPF (FEW); WBC,URINE 0-4 /HPF (0-4)
[2021-10-21 12:56] LABS: URINE AMPHETAMINE SCREEN NEGATIVE (Neg); URINE BARBITUATE SCREEN NEGATIVE (Neg); URINE BENZODIAZEPINES SCREEN NEGATIVE (Neg); URINE CANNABINOID SCREEN NEGATIVE (Neg); URINE COCAINE SCREEN NEGATIVE (Neg); URINE METHADONE SCREEN NEGATIVE (Neg); URINE OPIATE SCREEN NEGATIVE (Neg); URINE PHENCYCLIDINE SCREEN NEGATIVE (Neg)
[2021-10-21 14:47] VITALS: BP 126/74
--- NOTE | 2021-10-21 14:53 | NUR ---
Faxed Packet to [facility].
[2021-10-21] MEDS ORDERED: BENZ1TAB7 PO (15:01)
[2021-10-21] MEDS ORDERED: DULO-31 PO (15:01)
[2021-10-21] MEDS ORDERED: DIVA125T31 PO (15:01)
--- NOTE | 2021-10-21 15:17 | NUR ---
Refaxed Packet (did not go through) to [facility].
--- NOTE | 2021-10-21 15:35 | NUR ---
WANDER, Shannan, evaluating patient. No distress observed. Continue to monitor.
[2021-10-21] MEDS ORDERED: albuterol 2.5 MG/3 ML nebule NEB SCH (16:00)
[2021-10-21 16:01] LABS: VALPROATE < 3.0 UG/ML (50-100)
[2021-10-21] MEDS ORDERED: benztropine 1mg tablet PO SCH (21:00)
[2021-10-22] MEDS ORDERED: duloxetine 30mg CAPSULE.DR PO SCH (08:00)
[2021-10-22] MEDS ORDERED: divalproex sod 125mg tablet.DR PO SCH (08:00)
== END 2021-10-21 16:41 | disposition home or self-care (01) ==
LOC: ER 11:50
DX: R45.851 Suicidal ideations (principal); Z20.822 Contact with and (suspected) exposure to COVID-19; F20.9 Schizophrenia, unspecified; F41.9 Anxiety disorder, unspecified; J45.909 Unspecified asthma, uncomplicated; G89.29 Other chronic pain; F31.9 Bipolar disorder, unspecified; F15.90 Other stimulant use, unspecified, uncomplicated; Z86.69 Personal history of other diseases of the nervous system and sense organs; Z87.440 Personal history of urinary (tract) infections; Z98.890 Other specified postprocedural states; Z56.0 Unemployment, unspecified; Z79.899 Other long term (current) drug therapy
CPT/HCPCS: 36415; 80053; 80164; 80305; 80320; 81001; 81025; 84443; 85025; 87635; 99285; C9803

== ENCOUNTER → 2022-04-24 | Emergency (ER) | payer BC, MEDICAID ==
[~2022-04-24] MED LIST changes: +BENZ1TAB7 PO; -CLON-528 PO; +DIVA125T31 PO; +DULO-31 PO; -PHEN-824 PO
== END | disposition left against medical advice (07) ==
LOC: ER 17:17
DX: M25.559 Pain in unspecified hip (principal); Z53.21 Procedure and treatment not carried out due to patient leaving prior to being seen by health care provider